=== PATIENT | female | born 1975 | race Caucasian/White ===

== ENCOUNTER 2016-07-02 15:30 | Observation (INO) ==
[2016-07-02 16:18] LABS: Bilirubin,Urine Negative (Negative); Blood,Urine Negative (Negative); Clarity,Urine Clear (Clear); Color,Urine Yellow (Yellow); Glucose,Urine (UA) Normal (Normal); Ketones,Urine Negative (Negative); Leukocyte Esterase,Urine Negative (Negative); Nitrite,Urine Negative (Negative); PH,Urine 6.5 pH Units (5.0-8.0); Protein,Urine Negative (Neg-Trace); Specific Gravity,Urine 1.013 (1.010-1.025); Urobilinogen,Urine Normal (Normal)
[2016-07-02] MEDS ORDERED: 0.9 % Sodium Chloride 500 ML IVC ONE (16:51)
[2016-07-02 16:56] LABS: Basophils % 0.4 %; Eosinophils # 0.2 K/mcL (0.0-0.6); Eosinophils % 3.1 %; Hematocrit 41.6 % (35.3-44.9); Hemoglobin 13.9 g/dL (11.5-15.4); Immature Granulocytes % 0.1 % (0-4); Lymphocytes % 29.6 %; Mean Corpuscular HGB Conc 33.4 g/dL (31.6-35.5); Mean Corpuscular Hemoglobin 28.2 pg (28.0-33.3); Mean Corpuscular Volume 84.4 fL (83.0-100.0); Mean Platelet Volume 10.1 fL (9.4-12.4); Monocytes # 0.6 K/mcL (0.0-1.3); Monocytes % 8.9 %; Neutrophils # 3.9 K/mcL (1.6-8.9); Platelet Count 238 K/mcL (140-400); Red Blood Count 4.93 M/mcL (3.82-4.97); Red Cell Distribution Width 13.3 % (11.5-14.5); Segmented Neutrophils % 57.9 %
--- NOTE | 2016-07-02 17:02 | Emergency Department Note ---
Disposition Clinical Impression: Acute appendicitis Qualifiers: Acute appendicitis type: other Qualified Code(s): K35.89 - Other acute appendicitis Disposition: Admitted As Inpatient Condition: Good Referrals: Klaus Reardon DO [Primary Care Provider] - Forms: Work/School Release, ED Satisfaction Letter Abdominal Pain HPI - General Chief Complaint: ED Abdominal Pain Stated Complaint: Right abdominal/flank pain Time Seen by Provider: 07/02/16 16:45 Source: patient Mode of arrival: private vehicle Limitations: no limitations Nursing Notes Reviewed: Yes Vital Signs Reviewed: Yes - History of Present Illness HPI Narrative: 40-year-old female presents to the ER with a chief complaint of abdominal pain. Patient reports that it started yesterday evening around 8 PM after eating some hot dogs. Patient describes periumbilical pain that since this morning has localized to her right upper quadrant. Patient states it just feels like a pressure that has a 1 away since it started. Patient denies a previous history of this in the past. Patient reports that she was concerned there might be her appendix. It is worse with breathing movement or bending over. She denies nausea vomiting diarrhea or dysuria. No sick contacts. No other complaints. Pt Subjective Complaint: abdominal pain Onset (ago): hour(s) Consistency: constant Location: RUQ Pain Severity: mild Pain Scale: 0 Quality: stabbing Radiation: R flank Migration to: no migration Improves with: nothing Worsens with: nothing Associated symptoms: Denies: nausea, vomiting, diarrhea, fever, dysuria Treatments prior to arrival: none - Related Data Allergies Allergy/AdvReac Type Severity Reaction Status Date / Time No Known Allergies Allergy Verified 07/02/16 15:42 All systems ED: reviewed and negative except as stated. Constitutional: Denies: fever Cardiovascular: Denies: chest pain Respiratory: Denies: cough, dyspnea Gastrointestinal: Reports: abdominal pain. Denies: nausea, vomiting, diarrhea Genitourinary: Denies: dysuria, hematuria Abdominal Pain PMH - Past Medical History Medical history: Reports: other Female Surgical History: Reports: hysterectomy Psychiatric history: Reports: no psych history - Social History Smoking status: Never smoker Alcohol use: Reports: occasionally Drug use: Reports: none Physical Exam - General Limitations: no limitations General appearance: alert, in no apparent distress - Head Head exam: atraumatic, normocephalic, normal inspection - Eye Eye exam: Present: normal appearance, EOMI - ENT ENT exam: normal exam - Neck Neck exam: Present: normal inspection - Chest Chest inspection: Present: normal inspection, symmetric chest wall rise - Respiratory Respiratory exam: Present: normal lung sounds bilaterally - Cardiovascular Cardiovascular exam: Present: regular rate, normal rhythm, normal heart sounds - Abdominal Exam Abdominal exam: Present: soft, tenderness (Patient has mild tenderness to palpation in the right upper quadrant and right flank. Negative Langston's. Negative McBurney's point tenderness. Patient did have a slight amount of right lower quadrant abdominal pain with movement of the right leg.) - Extremities Exam Extremities exam: Present: normal inspection, full ROM - Expanded Upper Extremity Exam Shoulder exam: Present: normal inspection, full ROM Arm exam: Present: normal inspection, full ROM Elbow exam: Present: normal inspection, full ROM Forearm/Wrist exam: Present: normal inspection, full ROM Hand exam: Present: normal inspection, full ROM - Expanded Lower Extremity Exam Hip/Pelvis exam: Present: normal inspection, full ROM Upper leg exam: Present: normal inspection, full ROM Knee exam: Present: normal inspection, full ROM Lower leg exam: Present: normal inspection, full ROM Ankle exam: Present: normal inspection, full ROM Foot/toe exam: Present: normal inspection, full ROM - Neurological Exam Neurological exam: Present: alert - Psychiatric Psychiatric exam: Present: normal affect, normal mood - Skin Skin exam: Present: warm, dry, intact, normal color Course Course Narrative: Patient seen and examined. Vital signs reviewed. We will get some basic labs, urinalysis and CT scan of the abdomen and pelvis. Patient declines nausea or pain medication at this time. - Reevaluation(s) Reevaluation #1: I discussed the results of imaging with the patient and family. They request that I speak with Dr. carpenter because he has performed surgery before on her and the rest of her family. Although he is not medicare contact specialist I will attempt to contact him as per the patient's request. Reevaluation #2: Patient updated at the surgeon has been made aware and will be down to see her. - Consultations Consultation #1: At the request of the patient and family I spoke with Dr. Carpenter. I discussed her history, exam, labs and CT findings. He reports that he will be down to see the patient. Vital Signs Temperature 98.4 F 07/02/16 15:38 Pulse Rate 77 07/02/16 15:38 Respiratory Rate 16 07/02/16 15:38 Blood Pressure 167/115 07/02/16 15:38 O2 Sat by Pulse Oximetry 98 07/02/16 15:38 Temperature 98.4 F 07/02/16 15:38 Pulse Rate 75 07/02/16 20:14 Respiratory Rate 16 07/02/16 20:14 Blood Pressure 155/90 07/02/16 20:14 O2 Sat by Pulse Oximetry 97 07/02/16 20:14 Oxygen Delivery Oxygen Delivery Room Air Abdominal Pain - MDM Narrative Medical decision making narrative: 40-year-old female presents to the ER due to right upper and lower quadrant abdominal pain since yesterday evening. Atraumatic in nature. Denies any nausea vomiting or diarrhea. Pain is been constant since onset. Patient declined analgesics or antibiotics and medics here. CT scan of the abdomen and pelvis as per radiology read shows acute appendicitis without perforation or abscess formation. Afebrile with a normal white count here. Patient was discussed with Dr. carpenter and admitted in stable condition. - Lab Data Lab results reviewed: Yes I reviewed the patient's lab results. Result diagrams: 07/02/16 16:35 07/02/16 16:35 Lab Results 07/02/16 07/02/16 07/02/16 Range/Units 16:06 16:10 16:35 WBC 6.8 (4.3-11.1) K/mcL RBC 4.93 (3.82-4.97) M/mcL Hgb 13.9 (11.5-15.4) g/dL Hct 41.6 (35.3-44.9) % MCV 84.4 (83.0-100.0) fL MCH 28.2 (28.0-33.3) pg MCHC 33.4 (31.6-35.5) g/dL RDW 13.3 (11.5-14.5) % Plt Count 238 (140-400) K/mcL MPV 10.1 (9.4-12.4) fL Immature Gran % 0.1 (0-4) % Seg Neutrophils % 57.9 % Lymphocytes % 29.6 % Monocytes % 8.9 % Eosinophils % 3.1 % Basophils % 0.4 % Neutrophils # 3.9 (1.6-8.9) K/mcL Lymphocytes # 2.0 (0.6-4.6) K/mcL Monocytes # 0.6 (0.0-1.3) K/mcL Eosinophils # 0.2 (0.0-0.6) K/mcL Basophils # 0.0 (0.0-0.2) K/mcL Sodium (136-145) mEq/L Potassium (3.5-4.5) mEq/L Chloride (98-109) mEq/L Carbon Dioxide (19-29) mEq/L BUN (7-20) mg/dL Creatinine (0.57-1.11) mg/dL Est GFR ( Amer) (> 60) Est GFR (Non-Af Amer) (> 60) BUN/Creatinine Ratio (6-26) Glucose (70-99) mg/dL Calculated Osmolality (280-300) Calcium (8.6-10.8) mg/dL Total Bilirubin (0.2-1.2) mg/dL Direct Bilirubin (0.0-0.5) mg/dL Indirect Bilirubin (0.0-1.2) mg/dL AST (5-34) Units/L ALT (0-55) Units/L Alkaline Phosphatase (38-126) Units/L Serum Total Protein (6.0-8.3) g/dL Albumin (3.5-5.0) g/dL Globulin (2.4-3.5) g/dL Albumin/Globulin Ratio (1.1-2.2) Amylase (25-125) Units/L Lipase (8-78) Units/L Urine Color Yellow (Yellow) Urine Clarity Clear (Clear) Urine pH 6.5 (5.0-8.0) pH Units Ur Specific [place] 1.013 (1.010-1.025) Urine Protein Negative (Neg-Trace) mg/dL Urine Glucose (UA) Normal (Normal) mg/dL Urine Ketones Negative (Negative) mg/dL Urine Blood Negative (Negative) Urine Nitrite Negative (Negative) Urine Bilirubin Negative (Negative) Urine Urobilinogen Normal (Normal) mg/dL Ur Leukocyte Esterase Negative (Negative) Ur Culture Indicated? NO (NO) Urine Test Negative (Negative) 07/02/16 Range/Units 16:35 WBC (4.3-11.1) K/mcL RBC (3.82-4.97) M/mcL Hgb (11.5-15.4) g/dL Hct (35.3-44.9) % MCV (83.0-100.0) fL MCH (28.0-33.3) pg MCHC (31.6-35.5) g/dL RDW (11.5-14.5) % Plt Count (140-400) K/mcL MPV (9.4-12.4) fL Immature Gran % (0-4) % Seg Neutrophils % % Lymphocytes % % Monocytes % % Eosinophils % % Basophils % % Neutrophils # (1.6-8.9) K/mcL Lymphocytes # (0.6-4.6) K/mcL Monocytes # (0.0-1.3) K/mcL Eosinophils # (0.0-0.6) K/mcL Basophils # (0.0-0.2) K/mcL Sodium 138 (136-145) mEq/L Potassium 3.9 (3.5-4.5) mEq/L Chloride 104 (98-109) mEq/L Carbon Dioxide 23 (19-29) mEq/L BUN 10 (7-20) mg/dL Creatinine 0.72 (0.57-1.11) mg/dL Est GFR ( Amer) > 60 (> 60) Est GFR (Non-Af Amer) > 60 (> 60) BUN/Creatinine Ratio 14 (6-26) Glucose 95 (70-99) mg/dL Calculated Osmolality 285 (280-300) Calcium 9.7 (8.6-10.8) mg/dL Total Bilirubin 0.7 (0.2-1.2) mg/dL Direct Bilirubin 0.2 (0.0-0.5) mg/dL Indirect Bilirubin 0.5 (0.0-1.2) mg/dL AST 16 (5-34) Units/L ALT 21 (0-55) Units/L Alkaline Phosphatase 101 (38-126) Units/L Serum Total Protein 7.1 (6.0-8.3) g/dL Albumin 3.8 (3.5-5.0) g/dL Globulin 3.3 (2.4-3.5) g/dL Albumin/Globulin Ratio 1.2 (1.1-2.2) Amylase 43 (25-125) Units/L Lipase 18 (8-78) Units/L Urine Color (Yellow) Urine Clarity (Clear) Urine pH (5.0-8.0) pH Units Ur Specific [place] (1.010-1.025) Urine Protein (Neg-Trace) mg/dL Urine Glucose (UA) (Normal) mg/dL Urine Ketones (Negative) mg/dL Urine Blood (Negative) Urine Nitrite (Negative) Urine Bilirubin (Negative) Urine Urobilinogen (Normal) mg/dL Ur Leukocyte Esterase (Negative) Ur Culture Indicated? (NO) Urine Test (Negative) - Radiology Data Radiology results reviewed: Yes I reviewed the patient's radiology results. Abdomen/Pelvis CT 07/02/16 16:51 IMPRESSION: 1. Mildly dilated appendix at 11 mm with periappendiceal inflammatory changes consistent with acute appendicitis. No periappendiceal abscess, free air or free fluid. 2. Otherwise no acute findings within the abdomen or pelvis. Scattered colonic diverticulosis. 3. A 4 mm noncalcified right lower lobe pulmonary nodule. Follow-up recommendations to follow. RECOMMENDATIONS: Fleischner Society guidelines for follow-up and management of incidentally detected pulmonary nodules: Single Solid Nodule: Nodule size less than 6 mm In a low-risk patient, no routine follow-up. In a high-risk patient, optional CT at 12 months. - Low risk patients include individuals with minimal or absent history of smoking and other known risk factors. - High risk patients include individuals with a history or smoking or known risk factors. Radiology 2017 http://pubs.rsna.org/doi/full/10.1148/[email or web address] D/ / 07/02/2016 18:18:25 Titi Cunningham MD / bob Interpreting Provider: Titi Cunningham MD Attestation Statement - Attestation Attestation: Patient was seen with resident physician. I reviewed the history, physical, assessment and plan, and agree with the findings. I also personally evaluated this patient and had [id number] time with this patient. 32-year-old female presents to the emergency Department with 24-hour history of abdominal discomfort. Started with periumbilical pain and then became right sided flank pain and little bit of right upper quadrant pain. Denies fevers chills. No nausea or vomiting. On examination vital signs are normal. Heart normal. Lungs normal. Abdomen is soft there is no guarding or rigidity. There is some mild tenderness with deep palpation of the mid flank on the right side. I could not elicit pain in the right upper quadrant or the right lower quadrant. Extremities are unremarkable. Neurologically patient is intact. We will do a CT scan to check for abnormalities. Also check labs and treat patient's pain. I anticipate we will be able to discharge patient on initial findings. CT scan was positive for acute appendicitis. Patient's requested that Dr. bustillos take care of the patient. Even though Dr. Cates was not medicare contact specialist we did manage to contact him he came and evaluated the patient. He also agreed to take patient to the OR and to admit him subsequently after that. Did request antibiotics which were ordered. Patient's pain and hemodynamics were controlled while in the Emergency department. I agree with the resident physician assessment and plan.
[2016-07-02 17:11] LABS: Alanine Aminotransferase 21 Units/L (0-55); Albumin 3.8 g/dL (3.5-5.0); Albumin/Globulin Ratio 1.2 (1.1-2.2); Alkaline Phosphatase 101 Units/L (38-126); Amylase 43 Units/L (25-125); Aspartate Amino Transferase 16 Units/L (5-34); BUN/Creatinine Ratio 14 (6-26); Bilirubin,Direct 0.2 mg/dL (0.0-0.5); Bilirubin,Indirect 0.5 mg/dL (0.0-1.2); Bilirubin,Total 0.7 mg/dL (0.2-1.2); Blood Urea Nitrogen 10 mg/dL (7-20); Calcium 9.7 mg/dL (8.6-10.8); Carbon Dioxide 23 mEq/L (19-29); Chloride 104 mEq/L (98-109); Globulin 3.3 g/dL (2.4-3.5); Glucose 95 mg/dL (70-99); Lipase 18 Units/L (8-78); Osmolality,Calculated 285 (280-300); Potassium 3.9 mEq/L (3.5-4.5); Sodium 138 mEq/L (136-145); Total Protein 7.1 g/dL (6.0-8.3); eGFR For African Americans > 60 (> 60); eGFR For Non-African Americans > 60 (> 60)
--- NOTE | 2016-07-02 20:16 | Anesthesia Evaluation PreOp ---
Date of Encounter: 07/02/16 Time of Encounter: 23:11 - Past History Planned Operation: Lap. Appy. Cardiac History: Denies any Significant Hx Pulmonary History: Denies Any Significant HX [employer] History: Denies Any Significant HX Other Medical History: Denies Any Significant HX Anesthesia History: No Prior Anesthetic Complications, Past Anesthesia (GONZALO, Tubal) : No (GONZALO) Alcohol Use: occasionally Drug use: none Medications and Allergies Naproxen [Naprosyn] 500 mg PO BID PRN 07/02/16 [History] Nitrofurantoin Monohyd/M-Cryst [Macrobid 100 mg Capsule] 100 mg PO DAILY [History] Terazosin [Hytrin] 1 mg PO QAM 07/02/16 [History] Allergies No Known Allergies Allergy (Verified 07/02/16 15:42) - Meds/Allergy Pre-op Review Medications Reviewed: Yes Allergies Reviewed: Yes Beta Blockers on Current Med List: No Anesthesia Results - Labs 07/02/16 16:35 07/02/16 16:35 Anesthesia Exam O2 Sat Height 1.57 m Weight 97.522 kg O2 Sat by Pulse Oximetry 97 O2 Sat by Pulse Oximetry 97 O2 Sat by Pulse Oximetry 98 Vital Signs Temp Pulse Resp BP Pulse Ox 98.4 F 77 16 167/115 98 07/02/16 15:38 07/02/16 15:38 07/02/16 15:38 07/02/16 15:38 07/02/16 15:38 Vital Signs/O2 Sat, Most Current Temp Pulse Resp BP Pulse Ox 98.4 F 75 16 155/90 97 07/02/16 15:38 07/02/16 20:14 07/02/16 20:14 07/02/16 20:14 07/02/16 20:14 Height: 5'2'' Weight: 215# NPO (# of Hours): > 8 hrs Pain Scale: 0 Pain Scale Used: Numeric (1 - 10) - HEENT Pupil (Motor): Pupils equal, EOMI Mallampati: I Teeth: Normal Oral Opening: Greater than 3 - [employer] LOC: Oriented [employer] Motor: Normal RUE, Normal LUE, Normal RLE, Normal LLE, Normal Face [employer] Sensory: Normal: RUE, LUE, RLE, LLE, Face - Cardiac Rhythm: Regular Murmur: None JVD: No Carotid Bruit: No - Pulmonary Breath Sounds: bilateral Clear Respiratory Effort: Symmetrical Anesthesia Assess/Plan ASA Score: 1, E Modified Marla Scale for Level of Consciousness: Cooperative, oriented, and tranquil Anesthetic Plan: General Autologous Blood: Yes Monitoring Plan: Standard Monitors Recovery Plan: PACU
[2016-07-02] MEDS ORDERED: *HR* FentaNYL (PF) 100 MCG/2 ML VIAL ONE ×2 (20:20→23:59)
[2016-07-02] MEDS ORDERED: *HR* Propofol 200 MG/20 ML VIAL IVP ONE (20:20)
[2016-07-02] MEDS ORDERED: *HR* Midazolam HCl 2 MG/2 ML VIAL ONE (20:20)
[2016-07-02] MEDS ORDERED: *HR* Rocuronium Bromide 50 MG/5 ML VIAL ONE (20:23)
[2016-07-02] MEDS ORDERED: Dexamethasone 4 MG/ML VIAL ONE (20:23)
[2016-07-02] MEDS ORDERED: Ondansetron 4 MG/2 ML VIAL ONE (20:23)
[2016-07-02] MEDS ORDERED: Lidocaine -MPF 2% 2 ML VIAL ONE (20:23)
[2016-07-02] MEDS ORDERED: Piperacillin/Tazobactam 3.375 GM in D5% in Water (Mini-Bag+) 100 ML IVPB ONE (20:26)
--- NOTE | 2016-07-02 20:54 | General Surg History&Physical ---
Date of Encounter: 07/02/16 Time of Encounter: 20:10 History of Present Illness Chief complaint: Right-sided abdominal pain, acute appendicitis HPI: Ms. Nino is a 40 year old female further surgical services after presenting to the [facility] ED with new onset right-sided abdominal pain. Patient indicates symptoms started approximately 2030 hrs. last evening. The patient describes periumbilical abdominal pain radiating to the right mid to right upper quadrant with a course of the day. The symptoms progressed in severity prompting the patient to present to the emergency department for further evaluation and treatment. Examination was fairly unremarkable with mild to moderate right flank pain and normal leukocytosis but CT demonstrated an enlarged, dilated , 11 millimeter appendix with periappendiceal inflammatory changes consistent with acute appendicitis. Incidental findings include scattered colonic diverticulosis and a 4 mm noncalcified pulmonary nodule in the right lower lobe. At the family's request, I was contacted for further evaluation and treatment. Past medical history is notable for endometriosis and chronic urinary tract infection Surgical history includes: Tonsillectomy, tubal ligation, hysterectomy; excision of cutaneous cyst right knee Allergies: No known drug allergies Medications: Terazosin and nitrofurantoin Social history: G0, P0; former smoker, quit in 2011. The patient admits to a pack daily for approximately 4 years. She admits to alcohol consumption several times weekly. She denies any illicit drug use. The patient is employed as a business banking manager. Family history: Noncontributory Physical examination: Age-appropriate, overweight, female in no acute distress. Afebrile 98.4, pulse 75, respirations 16, blood pressure 155/90. Skin: Warm, no obvious jaundice Lungs: Clear to auscultation, mild abdominal pain with deep inspiration Cardiac: Regular rate, no appreciable murmurs Abdomen: Soft, minimal tenderness in the right lower quadrant - extending to the anterior axillary line. No obvious intra-abdominal masses. No rebound. Hypoactive bowel sounds. Well-healed Pfannenstiel incision is noted low anterior abdomen Extremities: No obvious clubbing cyanosis or edema Labs: White count 6.8, hemoglobin 13.9, hematocrit 41.6, platelet count 238,000 Sodium 138, potassium 3.9, B1 10, creatinine 0.72. Estimated GFR greater than 60. Liver function tests all within normal limits; urinalysis also unremarkable Urine negative CT: Was personally reviewed; findings described above Impression: 40-year-old female with acute appendicitis. Treatment options include admission for IV ATB and IV analgesics with monitoring for progressive symptoms v appendectomy. Both options were discussed with their inherent risks. The patient, and her family, have decided to proceed with surgery. The vision is inadequate today for laparoscopic appendectomy but understands that an open appendectomy may become necessary. Risks of surgery include hemorrhage, infection, intra-abdominal abscess, injury to adjacent structures. If normal appendix is encountered, it will be removed, to eliminate such a diagnosis in the future. With the patient's history of pelvic surgery and endometriosis the initial port site will be placed in the right upper quadrant midclavicular line. If an adequate space can be established in the right lower quadrant then it may be possible to complete the appendetomy laparoscopically. The patient will be an observation admission post op. Past Med Surg Social Fam HX - Past Medical History Medical history: other Psychiatric history: no psych history - Social History Smoking Status: Never smoker Smokeless Tobacco Status: No Alcohol use: occasionally Drug use: none Medications and Allergies Allergies No Known Allergies Allergy (Verified 07/02/16 15:42) Review of Systems All systems PM: A 10-system review of systems was performed and is negative for pertinent findings except as documented above in the HPI. General Surgery Exam Initial Vital Signs Temp Pulse Resp BP Pulse Ox 98.4 F 77 16 167/115 98 07/02/16 15:38 07/02/16 15:38 07/02/16 15:38 07/02/16 15:38 07/02/16 15:38 Results - Labs 07/02/16 16:35 07/02/16 16:35 Diabetes panel 07/02/16 Range/Units 16:35 Sodium 138 (136-145) mEq/L Potassium 3.9 (3.5-4.5) mEq/L Chloride 104 (98-109) mEq/L Carbon Dioxide 23 (19-29) mEq/L BUN 10 (7-20) mg/dL Creatinine 0.72 (0.57-1.11) mg/dL Glucose 95 (70-99) mg/dL Calcium 9.7 (8.6-10.8) mg/dL AST 16 (5-34) Units/L ALT 21 (0-55) Units/L Alkaline Phosphatase 101 (38-126) Units/L Albumin 3.8 (3.5-5.0) g/dL Calcium panel 07/02/16 Range/Units 16:35 Calcium 9.7 (8.6-10.8) mg/dL Albumin 3.8 (3.5-5.0) g/dL Pituitary panel 07/02/16 Range/Units 16:35 Sodium 138 (136-145) mEq/L Potassium 3.9 (3.5-4.5) mEq/L Chloride 104 (98-109) mEq/L Carbon Dioxide 23 (19-29) mEq/L BUN 10 (7-20) mg/dL Creatinine 0.72 (0.57-1.11) mg/dL Glucose 95 (70-99) mg/dL Calcium 9.7 (8.6-10.8) mg/dL Adrenal panel 07/02/16 Range/Units 16:35 Sodium 138 (136-145) mEq/L Potassium 3.9 (3.5-4.5) mEq/L Chloride 104 (98-109) mEq/L Carbon Dioxide 23 (19-29) mEq/L BUN 10 (7-20) mg/dL Creatinine 0.72 (0.57-1.11) mg/dL Glucose 95 (70-99) mg/dL Calcium 9.7 (8.6-10.8) mg/dL Total Bilirubin 0.7 (0.2-1.2) mg/dL AST 16 (5-34) Units/L ALT 21 (0-55) Units/L Alkaline Phosphatase 101 (38-126) Units/L Albumin 3.8 (3.5-5.0) g/dL All other labs normal.
[2016-07-02] MEDS ORDERED: Bupivacaine/EPI 1:200k 0.25%PF 30 ML VIAL ONE (23:08)
[2016-07-03] MEDS ORDERED: *HR* FentaNYL (PF) 100 MCG/2 ML VIAL ONE (00:13)
[2016-07-03] MEDS ORDERED: *HR* Labetalol 100 MG/20 ML MDV IVP PRN (00:17)
[2016-07-03] MEDS ORDERED: Ondansetron 4 MG/2 ML VIAL IVP ONE (00:17)
[2016-07-03] MEDS ORDERED: Albuterol 2.5 MG/3 ML NEBULIZER IH ONE (00:17)
[2016-07-03] MEDS ORDERED: *HR* Promethazine 25 MG/ML VIAL IVP PRN (00:17)
[2016-07-03] MEDS ORDERED: *HR* HYDROmorphone (PF) 1 MG/ML SYRINGE IVP PRN ×2 (00:17→00:45)
[2016-07-03] MEDS ORDERED: Neostigmine Methylsulfate 3 MG/3 ML SYRINGE ONE (00:29)
[2016-07-03] MEDS ORDERED: Ondansetron 4 MG/2 ML VIAL IVP PRN (00:45)
[2016-07-03] MEDS ORDERED: *HR* OxyCODONE/APAP 5/325 TABLET PO PRN ×2 (00:45→00:51)
[2016-07-03] MEDS ORDERED: Ringers Solution, Lactated 500 ML IVC ONE (00:45)
[2016-07-03] MEDS ORDERED: Acetaminophen 325 MG TABLET PO PRN (00:45)
--- NOTE | 2016-07-03 01:01 | Operative Note ---
Date of procedure: 07/03/16 Pre-op diagnosis: Acute appendicitis Post-op diagnosis: same Procedure: Laparoscopic appendectomy with lysis of adhesions Complications: None apparent Anesthesia: GETA Local Anesthetics: 0.25% Sensorcaine HCL with Epinephrine 1:200,000 SubQ (cc) ( 20 mL) Surgeon: Augie Carpenter Estimated blood loss (cc): 5 IV fluids (cc): 1,000 Specimen: appendix Condition: stable Disposition: PACU Procedure in Detail: The patient was brought to the operating room where she was placed supine upon the operating room table. The patient was appropriately identified as to person and procedure. The accuracy of this information was confirmed by the procedure team. The patient was then intubated and anesthetized under the supervision of Dr gold Hand. The abdomen was prepped and draped in usual sterile fashion. The patient has a history of previous endometriosis. A tubal ligation and hysterectomy were completed via Pfannenstiel incision. Due to the possibility of adhesions, the initial port was placed right upper quadrant midclavicular line. This site was marked, infiltrated with several milliliters of 0.25% bupivacaine with 1-200,000 units epinephrine before a small transverse incision was made. The abdominal wall was grasped and elevated. A 5 mm Xcel port was established. The rigid laparoscope was placed within the obturator to visualize passage through the layers of the anterior abdominal wall. Once the abdominal cavity was accessed, the obturator was replaced by the rigid laparoscope and the abdomen was insufflated with gaseous carbon dioxide. There was no obvious visible injury from establishing the port. Right paramedian abdomen several adhesions were encountered. I was able to visualize placement of a 12 mm port left lower quadrant, midclavicular line. Through this port laparoscopic scissors were passed and the effusions on the right side of the abdomen were partially dissected. This eventually expose the infraumbilical area for placement of an 11 mm port. All port sites were infiltrated with the 0.25% bupivacaine with 1-200/epinephrine. The laparoscope was shifted to the infraumbilical port, 5 mm endoscopic [place] clamps were passed through the other 2 ports. The cecum was identified and elevated. The anterior tinea was followed to the appendix which was identified along the right dominant wall essentially at the level of the umbilicus. The appendix was mobilized, the mesoappendix divided with endoscopic Makayla dissector. The appendix was then transected at its junction with the cecum using an Ethicon ATS 45 mm stapler ( blue cartridge). The mesoappendix was then transected with a second application of the Ethicon ATS 45 mm stapler using a vascular cartridge. Once the appendix was from the surrounding structures it was placed in endoscopic pouch and removed. The infraumbilical opening. The appendix was recovered and sent to pathology for analysis. The staple lines were inspected and found to be intact. A small amount of inflammatory fluid was evacuated from the right paracolic gutter. The pneumoperitoneum was then evacuated and the instrumentation removed. The fascia of the infraumbilical opening was closed with [id number] 0 Vicryl using S retractors. The skin edges of the port sites were approximated with subcuticular 4-0 Vicryl. The incisions were sealed with Dermabond dermal adhesive. The patient was taken to PACU in stable condition. Needle, sponge, and instrument counts were correct at the close of the case. Total volume of 0.25% bupivacaine with 1 200,000 units of epinephrine used during this procedure, 20 mL.
--- NOTE | 2016-07-03 01:14 | Anesthesia Evaluation Post Op ---
Date of Encounter: 07/03/16 Time of Encounter: 01:13 - Vital Signs Vital Signs: Vital Signs/O2 Sat, Most Current Temp Pulse Resp BP Pulse Ox 97.3 F L 66 16 127/64 95 07/03/16 00:48 07/03/16 01:08 07/03/16 01:08 07/03/16 01:08 07/03/16 01:08 - Lungs Lungs: Clear Ascult./Percussion - Airway Airway: Non-obstructed - Cardiovascular Regular Rate - Mental Status Mental Status: Alert & Oriented, Answers Appropriately - Pain Pain Scale: 1 Pain Scale used: Numeric (1 - 10) - Nausea Vomiting Nausea Vomiting: Not Present - Hydration Hydration: NPO, Has not voided - Discharge PostOp Status: Transfer Patient to floor
[2016-07-03] MEDS: Chloraseptic Spray 177 ML BOTTLE MM PRN ×3 (03:22→15:15)
[2016-07-03] MEDS: Ringers Solution, Lactated 1,000 ML IVC SCH ×2 (03:23→14:55)
[2016-07-03 09:24] LABS: Basophils % 0.3 %; Hematocrit 40.2 % (35.3-44.9); Hemoglobin 13.1 g/dL (11.5-15.4); Immature Granulocytes % 0.3 % (0-4); Lymphocytes # 0.7 K/mcL (0.6-4.6); Lymphocytes % 10.4 %; Mean Corpuscular HGB Conc 32.6 g/dL (31.6-35.5); Mean Corpuscular Hemoglobin 27.9 pg (28.0-33.3); Mean Corpuscular Volume 85.7 fL (83.0-100.0); Mean Platelet Volume 10.3 fL (9.4-12.4); Monocytes # 0.1 K/mcL (0.0-1.3); Monocytes % 2.1 %; Neutrophils # 5.7 K/mcL (1.6-8.9); Platelet Count 229 K/mcL (140-400); Red Blood Count 4.69 M/mcL (3.82-4.97); Red Cell Distribution Width 13.3 % (11.5-14.5); Segmented Neutrophils % 86.9 %
[2016-07-03 16:27] VITALS: BP 120/79
--- NOTE | 2016-07-03 16:32 | Discharge Summary ---
Outpatient Proc Discharge Plan - Plan Instructions: Appendicitis (DC) Additional Instructions: regular diet patient may shower, wash incision with soap and water activities as tolerated, lifting limited to less than 20# follow up office - 07/09/3016. Patient to call office, , 07/05/2016, to make appointment Tylenol, ibuprofen, Motrin, Advil, Aleve. etc as needed for pain Prescription: Percocet 5/325 1 every 6 hours as needed for pain not relieved by over the counter medications Prescriptions: OxyCODONE/APAP 5/325 [Percocet 5/325 MG] 1 each PO Q6HR PRN #10 tablet PRN Reason: Pain Home Medications: Naproxen [Naprosyn] 500 mg PO BID PRN 07/02/16 [History] Nitrofurantoin Monohyd/M-Cryst [Macrobid 100 mg Capsule] 100 mg PO DAILY [History] Terazosin [Hytrin] 1 mg PO QAM 07/02/16 [History] Acetaminophen [Tylenol] 650 mg PO Q6HR PRN #0 tablet 07/03/16 [Rx] OxyCODONE/APAP 5/325 [Percocet 5/325 MG] 1 each PO Q6HR PRN #10 tablet 07/03/16 [Rx]
== END 2016-07-03 17:36 | disposition home or self-care (01) ==
LOC: EMEROO 15:30 → 3BNU 15:30 → 2ANU 21:52
PROVIDERS: ADMIT Surgery; ATTEND Surgery